=== PATIENT | male | born 1945 | race Caucasian/White ===

== ENCOUNTER 2018-04-26 15:52 | Inpatient (IN) | payer OTHER, MEDICARE ==
[~2018-04-26] VITALS: Ht 179.1 cm; Wt 75.0 kg
[2018-04-26] MEDS ORDERED: PLEASE ENTER ALLERGIES MC SCH (16:00)
[2018-04-26] MEDS ORDERED: PLEASE ENTER HEIGHT AND WEIGHT MC SCH (16:00)
[2018-04-26] MEDS ORDERED: ASPIRIN 81 MG TABLET CHEW PO ONE (16:00)
[2018-04-26 16:13] LABS: BASOPHILS # (AUTO) 0.06 x10^3/uL (0-0.1); BASOPHILS % (AUTO) 1 % (0-1); EOSINOPHILS # (AUTO) 0.17 x10^3/uL (0-0.4); EOSINOPHILS % (AUTO) 4 % (1-7); LYMPHOCYTES # (AUTO) 1.75 x10^3/uL (1-3.4); LYMPHOCYTES % (AUTO) 36 % (22-44); MD NO; MEAN CORPUSCULAR HEMOGLOBIN 29.7 pg (27.5-34.5); MEAN CORPUSCULAR VOLUME 87.6 fL (81-97); MEAN PLATELET VOLUME 6.9 fL (7.4-10.4); MONOCYTES # (AUTO) 0.49 x10^3/uL (0.2-0.8); MONOCYTES % (AUTO) 10 % (2-9); NEUTROPHILS % (AUTO) 49 % (42-75); PLATELET COUNT 238 x10^3/uL (130-400); RED BLOOD COUNT 4.92 x10^6/uL (4.38-5.82); RED CELL DISTRIBUTION WIDTH 14.7 % (9.4-14.8)
[2018-04-26 16:23] LABS: ALANINE AMINOTRANSFERASE 26 U/L (12-78); ANION GAP 6 mmol/L (5-15); BILIRUBIN, DIRECT 0.2 mg/dL (0.1-0.2); CALCIUM 8.8 mg/dL (8.5-10.1); CHLORIDE 110 mmol/L (98-107); CREATININE 1.38 mg/dL (0.7-1.3)
[2018-04-26 16:28] LABS: ALKALINE PHOSPHATASE 70 U/L (45-117); BILIRUBIN,INDIRECT 0.3 mg/dL (0.0-2.0); BILIRUBIN,TOTAL 0.5 mg/dL (0.2-1.0); TOTAL PROTEIN 7.5 g/dL (6.4-8.2); TROPONIN I < 0.015 ng/mL (0.000-0.045)
[2018-04-26] MEDS ORDERED: AMIO100T4 PO (17:29)
[2018-04-26] MEDS ORDERED: METO25TA35 PO (17:29)
[2018-04-26 17:35] LABS: MICROSCOPIC NOT IND
[2018-04-26 17:40] LABS: CULTURE INDICATED? NO
[2018-04-26] MEDS ORDERED: OMNIPAQUE 350 MG/ML, 100ML BOTTLE ONE (19:09)
[2018-04-26] MEDS ORDERED: ACETAMINOPHEN 325 MG TABLET PO PRN (20:30)
[2018-04-26] MEDS ORDERED: BISACODYL 10 MG SUPP PR PRN (20:30)
[2018-04-26] MEDS ORDERED: ONDANSETRON 2MG/ML, 2ML IVPush PRN (20:30)
[2018-04-26] MEDS ORDERED: POLYETHYLENE GLYCOL 17 GM PACKET PO PRN (20:30)
[2018-04-26] MEDS: HEPARIN 5,000 UNITS/ML, 1ML SQ SCH (20:30)
[2018-04-26 21:16] VITALS: BP 147/72
[2018-04-26] MEDS: METOPROLOL TARTRATE 25 MG TABLET PO SCH (21:34)
[2018-04-26] MEDS: SODIUM CHLORIDE FLUSH 10ML SYR IVF SCH (21:34)
[2018-04-26] MEDS: AMIODARONE 200 MG TABLET PO SCH (21:34)
[2018-04-26] MEDS ORDERED: ASPI-621 PO (21:54)
[2018-04-26] MEDS ORDERED: GLIM1TAB2 PO (21:55)
[2018-04-27 02:00] VITALS: BP 113/63
[2018-04-27] MEDS: HEPARIN 5,000 UNITS/ML, 1ML SQ SCH ×2 (04:30→12:11)
[2018-04-27 05:27] LABS: TROPONIN I < 0.015 ng/mL (0.000-0.045)
[2018-04-27 07:40] VITALS: BP 135/71
[2018-04-27] MEDS: AMIODARONE 200 MG TABLET PO SCH (08:36)
[2018-04-27] MEDS: METOPROLOL TARTRATE 25 MG TABLET PO SCH (08:36)
[2018-04-27] MEDS: SODIUM CHLORIDE FLUSH 10ML SYR IVF SCH (08:37)
[2018-04-27] MEDS ORDERED: SENNA/DOCUSATE TABLET PO SCH (09:00)
[2018-04-27 11:39] LABS: TROPONIN I < 0.015 ng/mL (0.000-0.045)
[2018-04-27 13:00] VITALS: BP 144/76
== END 2018-04-27 18:22 | disposition home or self-care (01) | DRG 204 ==
LOC: ED 18:27 → EDIP 19:43 → 5SO 21:11
PROVIDERS: ADMIT Internal Medicine; ATTEND Internal Medicine
DX: R06.09 Other forms of dyspnea (principal); D68.69 Other thrombophilia; R07.9 Chest pain, unspecified; I05.9 Rheumatic mitral valve disease, unspecified; I48.0 Paroxysmal atrial fibrillation; Z79.82 Long term (current) use of aspirin; Z95.2 Presence of prosthetic heart valve; Z80.9 Family history of malignant neoplasm, unspecified; Z88.0 Allergy status to penicillin; Z88.8 Allergy status to other drugs, medicaments and biological substances; Z88.6 Allergy status to analgesic agent; Z91.040 Latex allergy status
CPT/HCPCS: 0399T; 36415; 71045; 71275; 80048; 80076; 81003; 82040; 83690; 83880; 84484; 85025; 85379; 93005; 93306; 99285; Q9967

== ENCOUNTER 2021-05-14 12:49 | Outpatient (CLI) | payer OTHER, BC ==
[~2021-05-14 12:49] MED LIST: AMIO100T4 PO; ASPI81TA45 PO; GLIM1TAB7 PO; METO25TA35 PO
== END 2021-05-14 23:59 | disposition home or self-care (01) ==
LOC: CVU 12:49
PROVIDERS: ATTEND Family Medicine
DX: I08.8 Other rheumatic multiple valve diseases (principal); R06.00 Dyspnea, unspecified; I45.4 Nonspecific intraventricular block
CPT/HCPCS: 93306